=== PATIENT | female | born 1945 | race Caucasian/White ===

== ENCOUNTER 2019-10-13 16:00 | Emergency (ER) | payer MEDICARE, BC ==
[2019-10-13] MEDS ORDERED: Acetaminophen 325 MG Tab PO ONE (16:23)
[2019-10-13] MEDS ORDERED: Sodium Chloride 0.9% 10 ML Syringe FLUSH PRN (16:23)
[2019-10-13] MEDS ORDERED: Sodium Chloride 0.9% 1,000 ML IV ONE (16:24)
[2019-10-13] MEDS ORDERED: Acetaminophen 500 MG Tab PO ONE (16:24)
--- NOTE | 2019-10-13 16:36 | EDM.PDOC ---
ED HPI GENERAL MEDICAL PROBLEM - General Chief Complaint: Fever Stated Complaint: aysmptomatic acute febrile illness Time Seen by Provider: 10/13/19 16:15 Source of Information: Reports: Patient History Limitations: Reports: No Limitations - History of Present Illness INITIAL COMMENTS - FREE TEXT/NARRATIVE: 74 YO WF presents to ER after coming to hospital for outpatient fluid order and finding out she has a temp of 102. Pt reports her last round of chemo was 1 week ago. Pt came for outpatient fluid therapy due to diarrhea, decreased appetite and oral stomatitis limiting her PO intake. Pt denies cough, chest pain or shortness of breath. Pt reports mild nasal congestion but suggests that it is related to her chemo as she's had this reaction in the past. Pt denies abdominal pain, nausea/vomiting but has had 2-3 watery stools per day over the last week, again which is not unusual. Pt denies dysuria, frequency or urgency. Pt is nontoxic and in NAD> Onset: Today Duration: Waxing/Waning Severity: Mild Improves with: Reports: None Worsens with: Reports: None Associated Symptoms: Reports: No Other Symptoms, Fever/Chills, Loss of Appetite , Malaise, Weakness. Denies: Chest Pain, Cough, cough w sputum, Diaphoresis, Headaches, Nausea/Vomiting, Rash, Seizure, Shortness of Breath, Syncope - Related Data Allergies Allergy/AdvReac Type Severity Reaction Status Date / Time aspirin Allergy Other Verified 10/13/19 16:11 Home Meds: Home Meds Acetaminophen [Pain Reliever] 1,000 mg PO Q6H PRN 02/08/18 [History] Calcium Carbonate/Vitamin D3 [Calcium Carbonate/Vitamin D 600 MG-200 Unit] 1 tab PO WITHBREAKFAST 02/08/18 [History] Norethindrone [Jolivette] 0.35 mg PO DAILY PRN 02/08/18 [History] Amoxicillin/Potassium Clav [Amox Tr-K Clv 875-125 mg Tab] 1 each PO BID [History] Nystatin 10/13/19 [History] valACYclovir HCl [valACYclovir] 10/13/19 [History] Past Medical History HEENT History: Reports: Cataract, Impaired Vision Cardiovascular History: Reports: Other (See Below) Other Cardiovascular History: Unable to take ASA due to von Willebrand disease. Gastrointestinal History: Reports: Other (See Below) Other Gastrointestinal History: Pt reports bleeding after colonoscopy in February 2018. Colonoscopy was normal at that time. 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: Reports: Musculoskeletal History: Reports: None Hematologic History: Reports: Bleeding Disorder, Blood Transfusion(s), Other ( See Below) Other Hematologic History: von Willebrand Disease Oncologic (Cancer) History: Reports: Breast - Infectious Disease History Infectious Disease History: Reports: Chicken Pox, Measles, Mumps, Shingles - Past Surgical History HEENT Surgical History: Reports: Cataract Surgery GI Surgical History: Reports: Colonoscopy Female Surgical History: Reports: Oophorectomy Musculoskeletal Surgical History: Reports: Arthroscopic Knee Oncologic Surgical History: Reports: Lumpectomy Social & Family History - Family History Family Medical History: Noncontributory Oncologic: Reports: Breast Other Oncologic Family History: mother - Caffeine Use Caffeine Use: Reports: Coffee, Tea ED ROS GENERAL - Review of Systems Review Of Systems: See Below Constitutional: Reports: Fever, Malaise, Weakness, Decreased Appetite HEENT: Reports: Rhinitis Respiratory: Reports: No Symptoms Cardiovascular: Reports: No Symptoms Endocrine: Reports: No Symptoms GI/Abdominal: Reports: No Symptoms : Reports: No Symptoms Musculoskeletal: Reports: No Symptoms Skin: Reports: No Symptoms Neurological: Reports: No Symptoms Psychiatric: Reports: No Symptoms Hematologic/Lymphatic: Reports: No Symptoms Immunologic: Reports: No Symptoms ED EXAM, SEPSIS - Physical Exam Exam: See Below Exam Limited By: No Limitations General Appearance: Alert, WD/WN, No Apparent Distress Ears: Normal External Exam, Normal Canal, Hearing Grossly Normal, Normal TMs Nose: Clear Rhinorrhea Throat/Mouth: Normal Inspection, Normal Lips, Normal Teeth, Normal Gums, Normal Oropharynx, Normal Voice, No Airway Compromise Head: Atraumatic, Normocephalic Neck: Normal Inspection, Supple, Non-Tender, Full Range of Motion Respiratory/Chest: No Respiratory Distress, Lungs Clear, Normal Breath Sounds, No Accessory Muscle Use, Chest Non-Tender Cardiovascular: Normal Peripheral Pulses, Regular Rate, Rhythm, No Edema, No Gallop, No JVD, No Murmur, No Rub GI/Abdominal Exam: Normal Bowel Sounds, Soft, Non-Tender, No Organomegaly, No Distention, No Abnormal Bruit, No Mass, Pelvis Stable Extremities: Normal Inspection, Normal Range of Motion, Non-Tender, No Pedal Edema, Normal Capillary Refill Neurological: Alert, Oriented, CN II-XII Intact, Normal Cognition, Normal Gait, Normal Reflexes, No Motor/Sensory Deficits Psychiatric: Normal Affect, Normal Mood Course - Vital Signs Last Recorded V/S: Last Vital Signs Temp 37.3 C 10/13/19 17:32 Pulse 104 H 10/13/19 17:32 Resp 18 10/13/19 17:32 BP 91/26 L 10/13/19 17:32 Pulse Ox 96 10/13/19 17:32 - Orders/Labs/Meds Orders: Active Orders 24 hr Category Date Time Status Peripheral IV Care [RC] . DIRECTED Care 10/13/19 16:24 Ordered CULTURE BLOOD [BC] Stat Lab 10/13/19 16:38 Ordered CULTURE BLOOD [BC] Stat Lab 10/13/19 16:38 Ordered Sodium Chloride 0.9% [Normal Saline] 1,000 ml Med 10/13/19 18:30 Active IV ASDIRECTED Sodium Chloride 0.9% [Saline Flush] Med 10/13/19 16:23 Ordered 10 ml FLUSH Q8HR PRN Vancomycin 1 gm Med 10/13/19 17:04 Ordered Sodium Chloride 0.9% [Normal Saline] 250 ml IV ONETIME Blood Culture x2 Reflex Set [OM.PC] Stat Oth 10/13/19 16:38 Ordered Isolation [COMM] Routine Oth 10/13/19 16:24 Ordered Peripheral IV Insertion Adult [OM.PC] Routine Oth 10/13/19 16:23 Ordered Medication Orders Vancomycin HCl 1 gm/ Sodium (Chloride) 250 mls @ 167 mls/hr IV ONETIME ONE Stop: 10/13/19 18:33 Last Admin: 10/13/19 17:13 Dose: 167 mls/hr Sodium Chloride (Normal Saline) 1,000 mls @ 125 mls/hr IV ASDIRECTED UBALDO Sodium Chloride (Saline Flush) 10 ml FLUSH Q8HR PRN PRN Reason: keep vein open Labs: Laboratory Tests 10/13/19 10/13/19 10/13/19 Range/Units 16:30 16:30 16:30 WBC 0.02 L* (5.00-10.00) 10^3/uL RBC 2.29 L (3.80-5.50) 10^6/uL Hgb 6.8 L* (12.0-16.0) g/dL Hct 20.3 L (37.0-47.0) % MCV 88.6 (82.0-92.0) fL MCH 29.7 (27.0-31.0) pg MCHC 33.5 (32.0-36.0) g/dL RDW 13.3 (11.5-14.5) % Plt Count 9 L* (150-400) 10^3/uL MPV 14.3 H (7.4-10.4) fL Sodium 140 (136-145) mmol/L Potassium 3.0 L (3.3-5.3) mmol/L Chloride 102 (98-115) mmol/L Carbon Dioxide 23.0 (21.0-32.0) mmol/L Anion Gap 18.0 H (5-15) mmol/L BUN 43 H (6-25) mg/dL Creatinine 1.05 (0.51-1.17) mg/dL Est Cr Clr Drug Dosing TNP Estimated GFR (MDRD) 51 mL/min Glucose 143 H (75 - 99) mg/dL Lactic Acid 0.8 (0.4-2.0) mmol/L Calcium 8.1 L (8.7-10.3) mg/dL Total Bilirubin 0.7 (0.2-1.0) mg/dL AST 188 H (15-37) U/L ALT 107 H (12-78) U/L Alkaline Phosphatase 87 (46-116) IU/L Total Protein 5.7 L (6.4-8.2) g/dL Albumin 1.84 L (3.00-4.80) g/dL Specimen Type Urine Color (YELLOW) Urine Appearance (CLEAR) Urine pH (5.0-9.0) Ur Specific Bazine (1.005-1.030) Urine Protein (NEGATIVE) mg/dL Urine Glucose (UA) (NEGATIVE) mg/dL Urine Ketones (NEGATIVE) mg/dL Urine Occult Blood (NEGATIVE) Urine Nitrite (NEGATIVE) Urine Bilirubin (NEGATIVE) Urine Urobilinogen (0.2-1.0) E.U./dL Ur Leukocyte Esterase (NEGATIVE) U Hyaline Cast (Auto) Urine RBC Urine WBC Ur Epithelial Cells Other Crystals Amorphous Sediment Urine Bacteria Granular Casts (Auto) Urine Mucus Urine Other Urine Trichomonas Urine Yeast Urinalysis Comment 10/13/19 Range/Units 16:56 WBC (5.00-10.00) 10^3/uL RBC (3.80-5.50) 10^6/uL Hgb (12.0-16.0) g/dL Hct (37.0-47.0) % MCV (82.0-92.0) fL MCH (27.0-31.0) pg MCHC (32.0-36.0) g/dL RDW (11.5-14.5) % Plt Count (150-400) 10^3/uL MPV (7.4-10.4) fL Sodium (136-145) mmol/L Potassium (3.3-5.3) mmol/L Chloride (98-115) mmol/L Carbon Dioxide (21.0-32.0) mmol/L Anion Gap (5-15) mmol/L BUN (6-25) mg/dL Creatinine (0.51-1.17) mg/dL Est Cr Clr Drug Dosing Estimated GFR (MDRD) mL/min Glucose (75 - 99) mg/dL Lactic Acid (0.4-2.0) mmol/L Calcium (8.7-10.3) mg/dL Total Bilirubin (0.2-1.0) mg/dL AST (15-37) U/L ALT (12-78) U/L Alkaline Phosphatase (46-116) IU/L Total Protein (6.4-8.2) g/dL Albumin (3.00-4.80) g/dL Specimen Type Urincc Urine Color Yellow (YELLOW) Urine Appearance Turbid H (CLEAR) Urine pH 5.5 (5.0-9.0) Ur Specific Bazine 1.020 (1.005-1.030) Urine Protein 100 H (NEGATIVE) mg/dL Urine Glucose (UA) Negative (NEGATIVE) mg/dL Urine Ketones Negative (NEGATIVE) mg/dL Urine Occult Blood Moderate H (NEGATIVE) Urine Nitrite Negative (NEGATIVE) Urine Bilirubin Small H (NEGATIVE) Urine Urobilinogen 0.2 (0.2-1.0) E.U./dL Ur Leukocyte Esterase Negative (NEGATIVE) U Hyaline Cast (Auto) Cancelled Urine RBC Cancelled Urine WBC Cancelled Ur Epithelial Cells Cancelled Other Crystals Cancelled Amorphous Sediment Cancelled Urine Bacteria Cancelled Granular Casts (Auto) Cancelled Urine Mucus Cancelled Urine Other Cancelled Urine Trichomonas Cancelled Urine Yeast Cancelled Urinalysis Comment Cancelled Meds: Medications Generic Name Dose Route Start Last Admin Trade Name Freq PRN Reason Stop Dose Admin Vancomycin HCl 1 gm/ Sodium 250 mls @ 167 mls/hr 10/13/19 17:04 10/13/19 17: 13 Chloride IV 10/13/19 18:33 167 mls/hr ONETIME ONE Administration Sodium Chloride 1,000 mls @ 125 mls/hr 10/13/19 18:30 Normal Saline IV ASDIRECTED UBALDO Sodium Chloride 10 ml 10/13/19 16:23 Saline Flush FLUSH Q8HR PRN keep vein open Discontinued Medications Generic Name Dose Route Start Last Admin Trade Name Freq PRN Reason Stop Dose Admin Acetaminophen 1,000 mg 10/13/19 16:23 10/13/19 16:55 Tylenol PO 10/13/19 16:24 Not Given NOW ONE Acetaminophen 1,000 mg 10/13/19 16:24 10/13/19 16:54 Tylenol Extra Strength PO 10/13/19 16:25 1,000 mg ONETIME ONE Administration Acetaminophen Confirm 10/13/19 16:45 10/13/19 16:55 Tylenol Extra Strength Administered 10/13/19 16:46 Not Given Dose 1,000 mg .ROUTE .STK-MED ONE Sodium Chloride 1,000 mls @ 999 mls/hr 10/13/19 16:24 10/13/19 16:55 Normal Saline IV 10/13/19 17:24 999 mls/hr .BOLUS ONE Administration Piperacillin Sod/Tazobactam 100 mls @ 200 mls/hr 10/13/19 17:30 10/13/19 18: 01 Sod 4.5 gm/ Sodium Chloride IV 10/13/19 17:59 200 mls/hr Q6H ONE Administration - Radiology Interpretation Free Text/Narrative:: CXR- RUL subtle opacity Departure - Departure Time of Disposition: 17:58 Disposition: DC/Tfer to Acute Hospital 02 Condition: Serious Clinical Impression: Pancytopenia, Neutropenic fever Pneumonia Qualifiers: Pneumonia type: due to unspecified organism Laterality: right Lung location: upper lobe of lung Qualified Code(s): J18.9 - Pneumonia, unspecified organism - Discharge Information Referrals: Meryl Watson MD [Primary Care Provider] - Forms: ED Department Discharge, Interfacility Transfer EMTALA Sepsis Event Note - Evaluation Sepsis Screening Result: Possible Severe Sepsis Risk - Focused Exam Vital Signs: Vital Signs Temp Temp Pulse Resp BP Pulse Ox 10/13/19 17:32 37.3 C 104 H 18 91/26 L 96 10/13/19 17:24 37.3 C 10/13/19 16:54 39.0 C H 10/13/19 16:11 39.0 C H 110 H 16 116/28 L 95 Date Exam was Performed: 10/13/19 Time Exam was Performed: 18:24 - My Orders Last 24 Hours: My Active Orders 10/13/19 16:23 Sodium Chloride 0.9% [Saline Flush] 10 ml FLUSH Q8HR PRN Peripheral IV Insertion Adult [OM.PC] Routine 10/13/19 16:24 Peripheral IV Care [RC] . DIRECTED Isolation [COMM] Routine 10/13/19 16:38 CULTURE BLOOD [BC] Stat CULTURE BLOOD [BC] Stat Blood Culture x2 Reflex Set [OM.PC] Stat 10/13/19 17:04 Vancomycin 1 gm Sodium Chloride 0.9% [Normal Saline] 250 ml IV ONETIME 10/13/19 18:30 Sodium Chloride 0.9% [Normal Saline] 1,000 ml IV ASDIRECTED - Assessment/Plan Last 24 Hours: My Active Orders 10/13/19 16:23 Sodium Chloride 0.9% [Saline Flush] 10 ml FLUSH Q8HR PRN Peripheral IV Insertion Adult [OM.PC] Routine 10/13/19 16:24 Peripheral IV Care [RC] . DIRECTED Isolation [COMM] Routine 10/13/19 16:38 CULTURE BLOOD [BC] Stat CULTURE BLOOD [BC] Stat Blood Culture x2 Reflex Set [OM.PC] Stat 10/13/19 17:04 Vancomycin 1 gm Sodium Chloride 0.9% [Normal Saline] 250 ml IV ONETIME 10/13/19 18:30 Sodium Chloride 0.9% [Normal Saline] 1,000 ml IV ASDIRECTED Assessment:: 1. Neutropenic fever 2. Pancytopenia 3. RUL infiltrate- probable pneumonia Plan: 1. Transfer to [facility]- Dr Hoang accepting 2. zosyn 4.5g IV now 3. Vanco 1g IV now 4. continue IVF @125cc/hr
[2019-10-13] MEDS ORDERED: Acetaminophen 500 MG Tab ONE (16:45)
[2019-10-13 17:09] LABS: CHLORIDE,CL 102 mmol/L (98-115); SODIUM,NA 140 mmol/L (136-145)
--- NOTE | 2019-10-13 17:17 | CR ---
[id number] RAD/RAD Chest PA or AP 1V EXAM: RAD Chest PA or AP 1V INDICATION: FEVER. COMPARISON: None. DISCUSSION: Right chest wall port catheter in place. Tip at the cavoatrial junction. Cardiomediastinal silhouette is normal in size and contour. Subtle opacity projecting over the right upper lung. Findings nonspecific. Differential diagnosis includes scarring, subsegmental atelectasis, or pneumonia. Correlate for signs of infection. If findings are clinically equivocal, a noncontrast chest CT is recommended. Surgical clips project over the left chest wall. IMPRESSION: Abnormal appearance of the right lung, described above with recommendations. Levar Kumar MD 10/13/19 2098 Thank you for allowing us to participate in the care of your patient.
[2019-10-13] MEDS ORDERED: Piperacillin/Tazobactam 4.5 GM in Sodium Chloride 0.9% 100 ML IV ONE (17:30)
[2019-10-13] MEDS ORDERED: Sodium Chloride 0.9% 1,000 ML IV SCH (18:30)
== END 2019-10-13 18:52 ==
LOC: KA.ED 16:00
DX: J18.9 Pneumonia, unspecified organism (principal); D61.818 Other pancytopenia; Z88.8 Allergy status to other drugs, medicaments and biological substances; Z79.899 Other long term (current) drug therapy
CPT/HCPCS: 36415; 71045; 80053; 81003; 83605; 85025; 87040; 87077; 87804; 96365; 96367; 99284; A9270; J2543; J3370; J7030; J7050

== ENCOUNTER 2025-04-22 16:07 | Emergency (ER) | payer MEDICARE ==
[2025-04-22] MEDS ORDERED: Sodium Chloride 0.9% 10 ML Syringe FLUSH PRN (16:10)
[2025-04-22 16:43] LABS: BASOPHILS ABSOLUTE AUTO 0.01 10^3/uL (0.00-0.10); BASOPHILS PERCENT AUTO 0.1 % (0.0-1.0); EOSINOPHILS ABSOLUTE AUTO 0.01 10^3/uL (0.10-0.30); EOSINOPHILS PERCENT AUTO 0.1 % (1.0-3.0); IMMATURE GRAN ABSOLUTE AUTO 0.06 10^3/uL (0.00-0.04); IMMATURE GRAN PERCENT AUTO 0.9 % (0.0-0.4); LYMPHOCYTES ABSOLUTE AUTO 0.45 10^3/uL (1.00-4.00); LYMPHOCYTES PERCENT AUTO 6.7 % (20.0-40.0); MEAN PLATELET VOLUME 12.9 fL (7.4-10.4); MONOCYTES ABSOLUTE AUTO 0.53 10^3/uL (0.10-0.80); MONOCYTES PERCENT AUTO 7.9 % (2.0-8.0); NEUTROPHILS ABSOLUTE AUTO 5.69 10^3/uL (2.50-7.00); NEUTROPHILS PERCENT AUTO 84.3 % (50.0-70.0); PLATELET COUNT,PLT 27 10^3/uL (150-400); RED BLOOD CELL COUNT 4.34 10^6/uL (3.80-5.50); RED CELL DISTRIBUTION WIDTH 15.2 % (11.5-14.5); WHITE BLOOD CELL COUNT,WBC 6.75 10^3/uL (5.00-10.00)
[2025-04-22 17:00] LABS: ALANINE AMINOTRANSFERASE,ALT 16 U/L (14-63); ASPARTATE AMNIOTRANSFERASE,AST 13 U/L (15-37); BILIRUBIN TOTAL 0.6 mg/dL (0.2-1.0); CARBON DIOXIDE,CO2 12.8 mmol/L (21.0-32.0); CHLORIDE,CL 115 mmol/L (98-107); CREATINE KINASE,CK 50 U/L (26-276); CREATININE 1.52 mg/dL (0.51-1.17); EST CRCL DRUG DOSING (CG) 19.42 mL/min; GLUCOSE RANDOM 104 mg/dL (70-140); LACTIC ACID 0.7 mmol/L (0.4-2.0); POTASSIUM,K 3.8 mmol/L (3.5-5.1); PROTEIN TOTAL,TP 6.8 g/dL (6.4-8.2); SODIUM,NA 150 mmol/L (136-145)
[2025-04-22 17:03] LABS: BLOOD UREA NITROGEN,BUN 63 mg/dL (7-18); ESTIMATED GFR 35 mL/min (>=60); ETHANOL BLOOD MEDICAL < 3 mg/dL (<3)
[2025-04-22 17:21] LABS: APPEARANCE,URINE CLEAR (CLEAR); GLUCOSE,URINE NEGATIVE (NEGATIVE); OCCULT BLOOD,URINE MODERATE (NEGATIVE)
[2025-04-22 17:28] LABS: AMPHETAMINES SCREEN, URINE NEGATIVE (NEGATIVE); COCAINE METABOLITES,URINE NEGATIVE (NEGATIVE); METHADONE SCREEN, URINE NEGATIVE (NEGATIVE); METHAMPHETAMINES SCREEN, URINE NEGATIVE (NEGATIVE); OXYCODONE SCREEN,URINE NEGATIVE (NEGATIVE); PCP SCREEN,URINE NEGATIVE (NEGATIVE); TCA SCREEN,URINE NEGATIVE (NEGATIVE); THC SCREEN,URINE 50 NG/ML NEGATIVE (NEGATIVE)
[2025-04-22 17:37] LABS: SQUAMOUS EPITHELIAL CELLS,UR RARE /HPF (NOT SEEN)
[2025-04-22] MEDS ORDERED: Naloxone 0.4 MG/ML SDV IVPUSH PRN (17:56)
[2025-04-22] MEDS: Ondansetron 4 MG/2 ML SDV IVPUSH ONE (18:10)
== END 2025-04-22 19:56 ==
LOC: KA.ED 16:07
DX: S72.001A Fracture of unspecified part of neck of right femur, initial encounter for closed fracture (principal); I49.9 Cardiac arrhythmia, unspecified; E86.0 Dehydration; Z88.8 Allergy status to other drugs, medicaments and biological substances; Z79.899 Other long term (current) drug therapy; W19.XXXA Unspecified fall, initial encounter; Y92.009 Unspecified place in unspecified non-institutional (private) residence as the place of occurrence of the external cause
CPT/HCPCS: 51702; 71045; 80053; 80305-QW; 80307; 81001; 82550; 83605; 83735; 84484; 85025; 86140; 96361; 96374; 96375; 99285-25; J1171; J2405; J7030